=== PATIENT | female | born 1990 | race Caucasian/White ===

== ENCOUNTER 2024-06-02 10:00 | Emergency (ER) | payer OTHER ==
[~2024-06-02] VITALS: Ht 165.1 cm; Wt 69.0 kg
[2024-06-02 10:03] VITALS: BP 129/91; TEMP 36.7; O2SAT 100
[2024-06-02 10:06] VITALS: PULSE 75; RESP 18; O2SAT 100
[2024-06-02] MEDS: ACETAMINOPHEN 500MG TABLET PO ONE (10:15)
[2024-06-02 10:34] LABS: BASOPHILS % 0.1 % (0.0-2.0); EOSINOPHILS % 0.4 % (0.0-5.0); HEMOGLOBIN. 13.7 g/dL (12.0-16.0); LYMPHOCYTES % 12.8 % (20.0-50.0); MEAN CORPUSCULAR HEMOGLOBIN 30.7 pg (28.0-32.0); MEAN CORPUSCULAR HGB CONC 34.3 g/dL (31.0-37.0); MEAN CORPUSCULAR VOLUME 89.3 fL (81.0-99.0); MEAN PLATELET VOLUME 7.9 fl (7.4-10.4); MONOCYTES % 6.7 % (2.0-8.0); PLATELET 237 x1000/uL (130-400); RED BLOOD CELL COUNT 4.48 mill/uL (4.2-5.4); RED CELL DISTRIBUTION WIDTH 13.6 % (11.6-14.6); WHITE BLOOD COUNT 11.6 x1000/uL (4.5-11.0)
[2024-06-02 10:38] LABS: CHLORIDE 104 mEq/L (98-107); POTASSIUM 3.5 mEq/L (3.5-5.1); SODIUM 140 mEq/L (136-145)
[2024-06-02 10:39] LABS: CARBON DIOXIDE 24 mEq/L (21-32)
[2024-06-02 10:40] LABS: CALCIUM 9.6 mg/dL (8.7-10.4)
[2024-06-02 10:44] LABS: CREATININE 0.8 mg/dL (0.6-1.0); GLUCOSE 117 mg/dL (70-105); UREA NITROGEN BLOOD 8 mg/dL (9-23)
[2024-06-02 11:28] LABS: B-HCG QUANTITATIVE 824 mIU/mL (<3)
== END 2024-06-02 13:17 | disposition home or self-care (01) ==
LOC: ER 10:00
DX: O03.9 Complete or unspecified spontaneous abortion without complication (principal); N93.9 Abnormal uterine and vaginal bleeding, unspecified
CPT/HCPCS: 36415; 76801; 80048; 84702; 85025; 86850; 86900; 99284